=== PATIENT | male | born 1990 | race Caucasian/White ===

== ENCOUNTER 2023-12-18 10:30 | Emergency (ER) | payer OTHER, SELFPAY ==
[2023-12-18 10:33] VITALS: BP 161/83; PULSE 104; RESP 18; TEMP 36.9; O2SAT 100; BMI 24.3
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
[2023-12-18 12:36] VITALS: BP 130/82; PULSE 89; RESP 16; O2SAT 99
--- NOTE | 2023-12-19 09:28 | PC.NURSE ---
Late Entry, at 1035 on 12/[address] Evans of modified Trauma.
== END 2023-12-18 12:36 | disposition home or self-care (01) ==
PROVIDERS: Emergency Provider Student in an Organized Health Care Education/Training Program
DX: M62.838 Other muscle spasm (principal); S43.401A Unspecified sprain of right shoulder joint, initial encounter; V29.99XA Rider (driver) (passenger) of other motorcycle injured in unspecified traffic accident, initial encounter
CPT/HCPCS: 73030; 99283

== ENCOUNTER → 2023-12-28 12:00 | Outpatient (CLI) | payer OTHER, SELFPAY ==
--- NOTE | 2023-12-28 12:02 | DI.MRI.S_ITS ---
PROCEDURE: MR SHOULDER RT WO CON INDICATIONS: Unspecified rotator cuff tear TECHNIQUE: Noncontrast oblique coronal T2 fast spin echo with fat saturation, oblique sagittal T1 spin echo and T2 fast spin echo with fat saturation, axial T1 spin echo and T2 fast spin echo with fat saturation through the shoulder. COMPARISON: [facility], CR, XR SHOULDER RT MIN 2V, 12/18/2023, 10:00. [facility], CR, XR SHOULDER 2+ VIEWS RIGHT, 12/26/2023, 11:27. FINDINGS: Image quality: Diagnostic Rotator cuff: Bulk: No significant atrophy Teres minor: Intact Supraspinatus: Mild insertional tendinopathy. Moderate edema is seen in the posterior inferior muscle fibers, extending proximally (8/13). Infraspinatus: Intact Subscapularis: Intact Bones and bursae: GH joint: Intact AC joint: [id number] degenerative changes Humeral head: Intact Scapula and acromion: Mildly displaced fracture of the scapular spine. Bursa: No pathologic fluid Capsule: Labrum: Semi circumferential labral tear with superior paralabral cysts. Long head biceps tendon: Split tear extends into the biceps tendon. IGHL: Intact Rotator interval: Partially edematous and effaced Soft tissues: No axillary adenopathy. Lungs are not well seen. IMPRESSION: There is a mildly displaced superior scapular fracture, with surrounding edema and contusion of the supraspinatus. Mild supraspinatus insertional tendinopathy. Semi circumferential labral tear with superior paralabral cysts, and split tear extending into the biceps tendon. Partially effaced rotator interval, possibly additional capsulitis. Mild to moderate acromioclavicular degenerative changes. Dictated by: Yong Zamora M.D. on 12/28/2023 at 15:08 Approved by: Yong Zamora M.D. on 12/28/2023 at 15:13
== END ==
LOC: MRI 12:01
PROVIDERS: Referring Provider Orthopaedic Surgery; Visit Provider Orthopaedic Surgery
DX: S42.191A Fracture of other part of scapula, right shoulder, initial encounter for closed fracture (principal); S43.431A Superior glenoid labrum lesion of right shoulder, initial encounter; S46.211A Strain of muscle, fascia and tendon of other parts of biceps, right arm, initial encounter; M75.101 Unspecified rotator cuff tear or rupture of right shoulder, not specified as traumatic
CPT/HCPCS: 73221